=== PATIENT | male | born 1985 | race Caucasian/White ===

== ENCOUNTER 2020-07-23 00:17 | Emergency (ER) | payer BC ==
--- NOTE | 2020-07-23 02:38 | EDM.PDOC ---
ED HPI GENERAL MEDICAL PROBLEM - General Chief Complaint: General Stated Complaint: WOKE UP CONFUSED ISSUES TALKING AND SOB Time Seen by Provider: 07/23/20 01:17 Source of Information: Reports: Patient History Limitations: Reports: No Limitations - History of Present Illness INITIAL COMMENTS - FREE TEXT/NARRATIVE: The patient presents with dizziness and trouble speaking. The patient said it was time for bed tonight. He felt dizzy. This has happened to him before and he had a complete work up to include an MRI and neurology consult. He has not had many episodes in awhile. He said he also got nauseated tonight and was shaking. He also could not talk for a short time. He had trouble getting on his shoes because he had generalized weakness. These new symptoms have never occurred with his other dizziness episodes. He denies have a fever, chills, cough, headache, chest pain, shortness of breath, abdominal pain, nausea or vomiting. He said when he went out into the cold he felt better. Now he said he feels much better. Onset: Sudden Duration: Minutes: Severity: Moderate Improves with: Reports: None Worsens with: Reports: None Associated Symptoms: Reports: Nausea/Vomiting. Denies: Chest Pain, Cough, Fever/Chills, Headaches, Shortness of Breath - Related Data Allergies Allergy/AdvReac Type Severity Reaction Status Date / Time No Known Allergies Allergy Verified 07/23/20 01:13 Home Meds: Home Meds . [No Known Home Meds] 07/23/20 [History] Past Medical History Neurological History: Reports: Other (See Below) Other Neuro History: dizziness - Past Surgical History HEENT Surgical History: Reports: TARYN Social & Family History - Tobacco Use Years of Tobacco use: 13 Packs/Tins Daily: 0.5 - Caffeine Use Caffeine Use: Reports: Coffee - Recreational Drug Use Recreational Drug Use: No ED ROS GENERAL - Review of Systems Review Of Systems: See Below Constitutional: Reports: Weakness. Denies: Fever, Chills HEENT: Reports: No Symptoms Respiratory: Reports: No Symptoms Cardiovascular: Reports: No Symptoms Endocrine: Reports: No Symptoms GI/Abdominal: Reports: Nausea. Denies: Abdominal Pain, Vomiting : Reports: No Symptoms Musculoskeletal: Reports: No Symptoms Skin: Reports: No Symptoms ED EXAM, GENERAL - Physical Exam Exam: See Below Exam Limited By: No Limitations General Appearance: Alert, No Apparent Distress Ears: Normal External Exam Nose: Normal Inspection Head: Atraumatic, Normocephalic Neck: Normal Inspection Respiratory/Chest: No Respiratory Distress, Lungs Clear, Normal Breath Sounds Cardiovascular: Regular Rate, Rhythm, No Edema, No Murmur #1 Interpretation EKG Date: 07/23/20 Time: 01:44 Rhythm: NSR Rate (Beats/Min): 61 [place]: Normal P-Wave: Present QRS: Normal ST-T: Normal QT: Normal Course - Vital Signs Last Recorded V/S: Last Vital Signs Temp 96.7 F L 07/23/20 01:08 Pulse 82 07/23/20 01:08 Resp 18 07/23/20 01:08 BP 147/95 H 07/23/20 01:08 Pulse Ox 100 07/23/20 01:08 - Orders/Labs/Meds Orders: Active Orders 24 hr Category Date Time Status Cardiac Monitoring [RC] . DIRECTED Care 07/23/20 01:31 Active EKG Documentation Completion [RC] STAT Care 07/23/20 01:32 Active Head wo Cont [CT] Stat Exams 07/23/20 01:32 Taken Labs: Laboratory Tests 07/23/20 07/23/20 Range/Units 01:58 01:58 WBC 7.82 (4.23-9.07) K/mm3 RBC 4.78 (4.63-6.08) M/mm3 Hgb 14.5 (13.7-17.5) gm/dl Hct 41.9 (40.1-51.0) % MCV 87.7 (79.0-92.2) fl MCH 30.3 (25.7-32.2) pg MCHC 34.6 (32.2-35.5) g/dl RDW Std Deviation 42.4 (35.1-43.9) fL Plt Count 171 (163-337) K/mm3 MPV 11.0 (9.4-12.3) fl Neut % (Auto) 74.1 H (34.0-67.9) % Lymph % (Auto) 12.3 L (21.8-53.1) % Centre % (Auto) 9.5 (5.3-12.2) % Eos % (Auto) 3.6 (0.8-7.0) Baso % (Auto) 0.5 (0.1-1.2) % Neut # (Auto) 5.80 H (1.78-5.38) K/mm3 Lymph # (Auto) 0.96 L (1.32-3.57) K/mm3 Centre # (Auto) 0.74 (0.30-0.82) K/mm3 Eos # (Auto) 0.28 (0.04-0.54) K/mm3 Baso # (Auto) 0.04 (0.01-0.08) K/mm3 Sodium 138 (136-145) mEq/L Potassium 4.8 (3.5-5.1) mEq/L Chloride 103 (98-107) mEq/L Carbon Dioxide 28 (21-32) mEq/L Anion Gap 11.8 (5-15) BUN 17 (7-18) mg/dL Creatinine 1.0 (0.7-1.3) mg/dL Est Cr Clr Drug Dosing 109.15 mL/min Estimated GFR (MDRD) > 60 (>60) mL/min BUN/Creatinine Ratio 17.0 (14-18) Glucose 136 H (74-106) mg/dL Calcium 8.7 (8.5-10.1) mg/dL Magnesium 1.8 (1.8-2.4) mg/dl Total Bilirubin 1.1 H (0.2-1.0) mg/dL AST 14 L (15-37) U/L ALT 21 (16-63) U/L Alkaline Phosphatase 45 L (46-116) U/L Troponin I < 0.017 (0.00-0.056) ng/mL Total Protein 6.5 (6.4-8.2) g/dl Albumin 3.7 (3.4-5.0) g/dl Globulin 2.8 gm/dL Albumin/Globulin Ratio 1.3 (1-2) - Re-Assessments/Exams Free Text/Narrative Re-Assessment/Exam: 07/23/20 02:39 I ordered an EKG, CT of his head and labs. His EKG shows a NSR with no acute changes. The CT of his head shows mucoperiosteal thickening involving all included ethmoid air cells. The rest of the paranasal sinuses and mastoid air cells are clear. No acute cortical infarction, hemorrhage or mass. His labs all look good. Departure - Departure Time of Disposition: 02:45 Disposition: Home, Self-Care 01 Condition: Good Clinical Impression: Dizziness - Discharge Information *PRESCRIPTION DRUG MONITORING PROGRAM REVIEWED*: Not Applicable *COPY OF PRESCRIPTION DRUG MONITORING REPORT IN PATIENT JEB: Not Applicable Referrals: Newton Cohen Jr, MD [Primary Care Provider] - 1 Week Forms: ED Department Discharge Additional Instructions: Drink plenty of fluids. Get some rest today. Follow up with your doctor within a week. Please return if you are worse. Sepsis Event Note (ED) - Evaluation Sepsis Screening Result: No Definite Risk - Focused Exam Vital Signs: Vital Signs Temp Pulse Resp BP Pulse Ox 07/23/20 01:08 96.7 F L 82 18 147/95 H 100 - My Orders Last 24 Hours: My Active Orders 07/23/20 01:31 Cardiac Monitoring [RC] . DIRECTED 07/23/20 01:32 EKG Documentation Completion [RC] STAT Head wo Cont [CT] Stat - Assessment/Plan Last 24 Hours: My Active Orders 07/23/20 01:31 Cardiac Monitoring [RC] . DIRECTED 07/23/20 01:32 EKG Documentation Completion [RC] STAT Head wo Cont [CT] Stat
--- NOTE | 2020-07-26 09:56 | CT ---
PROCEDURE INFORMATION: Exam: CT Head Without Contrast Exam date and time: 07/23/2020 2:16 AM Age: 34 years old Clinical indication: Dizziness and speech disturbance; Unspecified; Patient HX: Dizzy with sudden movement for several months TECHNIQUE: Imaging protocol: Computed tomography of the head without contrast. Radiation optimization: All CT scans at this facility use at least one of these dose optimization techniques: automated exposure control; mA and/or kV adjustment per patient size (includes targeted exams where dose is matched to clinical indication); or iterative reconstruction. COMPARISON: No relevant prior studies available. FINDINGS: Brain: Normal. No hemorrhage. Unremarkable white matter. No mass effect. Cerebral ventricles: No ventriculomegaly. Bones/joints: Unremarkable. No acute fracture. Paranasal sinuses: There is mucoperiosteal thickening involving bilateral ethmoid air cells. Mastoid air cells: Visualized mastoid air cells are well aerated. Soft tissues: Extracalvarial soft tissues are unremarkable. IMPRESSION: 1. Mucoperiosteal thickening involving all included ethmoid air cells. The rest of the paranasal sinuses and mastoid air cells are clear. 2. No acute cortical infarction, hemorrhage or mass. Thank you for allowing us to participate in the care of your patient. Dictated and Authenticated by: Mary Ann Peralta MD 07/23/2020 3:31 AM Central Time ([place] & [place]) [facility]
== END 2020-07-23 03:08 | disposition home or self-care (01) ==
LOC: JD.ED 00:17 → SUPCPDRO 00:17 → JD.ED 03:08
DX: R42 Dizziness and giddiness (principal); F17.210 Nicotine dependence, cigarettes, uncomplicated
CPT/HCPCS: 36415; 70450; 70450-26; 80053; 83735; 84484; 85025; 93005; 93010; 99283; 99284-25

== ENCOUNTER 2022-02-01 17:04 | Emergency (ER) | payer BC ==
[2022-02-01] MEDS ORDERED: Sodium Chloride 0.9% 10 ML Syringe FLUSH PRN (17:35)
[2022-02-01 18:14] LABS: ESTIMATED GFR > 60 mL/min (>60)
== END 2022-02-01 18:55 | disposition home or self-care (01) ==
LOC: JD.ED 17:04
DX: R07.81 Pleurodynia (principal); I10 Essential (primary) hypertension; Z72.0 Tobacco use
CPT/HCPCS: 36415; 71045; 80053; 83735; 83880; 84484; 85025; 85379; 85610; 85730; 93005; 99285; J3490; 93010; 99284